=== PATIENT | female | born 1955 | race Caucasian/White ===

== ENCOUNTER 2016-04-15 18:30 | Emergency (ER) | payer OTHER ==
[2016-04-15 20:13] VITALS: BP 149/77
[2016-04-15] MEDS ORDERED: Ibuprofen TAB* 600 MG PO ONE (21:05)
[2016-04-15] MEDS ORDERED: Albuterol/Ipratropium NEB.SOL* Albuterol 2.5 MG/Ipratropium 0.5 MG 3 ML INH ONE (21:06)
--- NOTE | 2016-04-15 21:12 | UC ---
FLU HPI - HPI Summary HPI Summary: 60 year old female with complaints of sudden onset of fever, chills, body aches , sore throat, headache and cough x 3 - 4 days. She is feeling worse tonight. States cough drops are not helping, mild relief with tylenol. Denies chest pain or difficulty breathing. - History of Current Complaint Chief Complaint: UCGeneralIllness Stated Complaint: COUGH CHEST CONGESTION Time Seen by Provider: 04/15/16 20:57 Hx Obtained From: Patient, Family/[employer] - Hx Last Menstrual Period: Menopause. ?: Yes Onset/Duration: Sudden Onset, Lasting Days - 3-4, Still Present Severity Currently: Moderate Severity Initially: Mild Associated Signs & Symptoms: Positive: Fever - not measured, Myalgia, Cough, Sore Throat, Nasal Congestion, Headache. Negative: Vomiting, Diarrhea - Risk Factors Influenza Risk Factors: Chronic Medical or Immunosuppresive Condition - diabetic - Allergy/Home Medications Allergies/Adverse Reactions: Allergies Allergy/AdvReac Type Severity Reaction Status Date / Time Coconut Oil Allergy Hives, Verified 04/15/16 20:12 Vomiting Iodinated Contrast Media Allergy Unknown Verified 04/15/16 20:12 [IV CONTRAST DYE] Reaction Details Iodine Allergy Unknown Verified 04/15/16 20:12 Reaction Details Penicillins Allergy Unknown Verified 04/15/16 20:12 Reaction Details Shellfish Allergy Allergy Hives Verified 04/15/16 20:12 seafood Allergy Hives Uncoded 04/15/16 20:12 PMH/Surg Hx/FS Hx/Imm Hx Previously Healthy: Yes Endocrine History Of: Reports: Diabetes, Dyslipidemia Denies: Thyroid Disease, Hyperthyroidism, Hypothyroidism Cardiovascular History Of: Reports: Hypertension Denies: Cardiac Disorders, Pacemaker/ICD, Myocardial Infarction, Congestive Heart Failure, Atrial Fibrillation, Deep Vein Thrombosis, Bleeding Disorders Respiratory History Of: Reports: COPD, Asthma Denies: Bronchitis, Pneumonia, Pulmonary Embolism GI/ History Of: Denies: Gastroesophageal Reflux, Ulcer, Gastrointestinal Bleed, Gall Bladder Disease, Kidney Stones, Diverticulitis, Renal Disease, Urosepsis Neurological History Of: Denies: TIA, CVA, Dementia, Seizures, Migraine Psychological History Of: Denies: Anxiety, Depression, Bipolar Disorder, Schizophrenia, Post Traumatic Stress Disorder Cancer History Of: Denies: Lung Cancer, Colorectal Cancer, Breast Cancer, Prostate Cancer, Cervical Cancer Other History Of: Negative For: HIV, Hepatitis B, Hepatitis C - Surgical History Surgical History: Yes Surgery Procedure, Year, and Place: Left elbow nerve surgery. with emergency surgery after - Family History Known Family History: Positive: Cardiac Disease, Diabetes - father - Social History Occupation: Disabled Lives: With Family Alcohol Use: None Substance Use Type: None Smoking Status (MU): Former Smoker Type: Cigarettes Amount Used/How Often: 1/2-1ppd Have You Smoked in the Last Year: No When Did the Patient Quit Smoking/Using Tobacco: 1 year - Immunization History Most Recent Influenza Vaccination: [id number] Review of Systems Constitutional: Fever, Chills, Fatigue Skin: Negative Eyes: Negative ENT: Sore Throat, Nasal Discharge Respiratory: Cough Cardiovascular: Negative Gastrointestinal: Negative Genitourinary: Negative Motor: Negative Neurovascular: Negative Musculoskeletal: Myalgia Neurological: Headache Psychological: Negative All Other Systems Reviewed And Are Negative: Yes Physical Exam Triage Information Reviewed: Yes Appearance: No Pain Distress, Well-Nourished, Ill-Appearing - mildly - shivering with her coat around her Vital Signs: Initial Vital Signs Temp 97.9 F 04/15/16 20:09 Pulse 95 04/15/16 20:09 Resp 18 04/15/16 20:09 BP 149/77 04/15/16 20:09 Pulse Ox 98 04/15/16 20:09 Vital Signs Reviewed: Yes Eyes: Positive: Conjunctiva Clear. Negative: Discharge ENT: Positive: Pharyngeal erythema, Nasal congestion, Nasal drainage, TMs normal , Tonsillar swelling Neck: Positive: Supple, Nontender, No Lymphadenopathy Respiratory: Positive: Lungs clear, Normal breath sounds, Decreased breath sounds, Other: - occasional dry hacking cough Cardiovascular: Positive: RRR, No Murmur Musculoskeletal: Positive: Strength Intact - able to step up on stool and sit upon exam table, ROM Intact - all 4 extremities Psychological: Positive: Normal Response To Family - with , Age Appropriate Behavior - pleasant and cooperative Skin: Negative: rashes, breakdown Flu Course/Dx - Course Course Of Treatment: Rapid Strep - negative. Rapid Influenza - negative. Ibuprofen - with moderate relief. Duo nebulizer - with relief of symptoms - Differential Dx/Diagnosis Differential Diagnosis/HQI/PQRI: Influenza, Other - Strep throat Provider Diagnoses: Flu like illness. Viral illness Discharge - Discharge Plan Condition: Stable Disposition: HOME Prescriptions: Benzonatate CAP* [Tessalon CAP*] 100 mg PO TID PRN #15 cap PRN Reason: Cough Patient Education Materials: Influenza (ED) Referrals: Favio De La Cruz PA [Primary Care Provider] - 5 Days (sooner if you are worse ) Additional Instructions: Please return if you become worse for a recheck
[2016-04-15] MEDS ORDERED: Benzonatate CAP* 100 MG PO ONE (21:41)
== END 2016-04-15 21:53 | disposition home or self-care (01) ==
LOC: UCCORT 18:30
DX: J11.1 Influenza due to unidentified influenza virus with other respiratory manifestations (principal); Z87.891 Personal history of nicotine dependence; Z88.0 Allergy status to penicillin; Z88.8 Allergy status to other drugs, medicaments and biological substances; Z91.041 Radiographic dye allergy status
CPT/HCPCS: 87502; 87651; 99213; A9270-GY; G0463